=== PATIENT | female | born 1965 | race Caucasian/White ===

== ENCOUNTER → 2016-10-20 | Outpatient (CLI) | payer BC | LOC: RAD 08:06 | DX: M79.671 Pain in right foot (principal); M77.31 Calcaneal spur, right foot; M77.32 Calcaneal spur, left foot | CPT/HCPCS: 73630 ==

== ENCOUNTER → 2020-09-13 | Outpatient (CLI) | payer OTHER, SELFPAY ==
[~2020-09-13] MED LIST: CRESTOR40 MG PO; GLUCOPHAGE500 MG PO; IMDUR ER TAB 3030 MG PO; LOPRESSOR 25 MG25 MG PO; PROZAC40 MG PO; ZESTRIL40 MG PO
== END ==
LOC: MAMO 13:00
DX: N63.0 Unspecified lump in unspecified breast (principal)
CPT/HCPCS: 77066; G0279

== ENCOUNTER → 2021-04-17 | Outpatient (CLI) | payer OTHER | LOC: KOH-I 15:07 | DX: J01.81 Other acute recurrent sinusitis (principal); R93.89 Abnormal findings on diagnostic imaging of other specified body structures | CPT/HCPCS: 70486 ==

== ENCOUNTER → 2021-11-07 | Outpatient (CLI) | payer OTHER | LOC: RAD 11:42 | DX: M54.50 Low back pain, unspecified (principal); M47.816 Spondylosis without myelopathy or radiculopathy, lumbar region | CPT/HCPCS: 72100 ==

== ENCOUNTER → 2021-11-27 | Outpatient (CLI) | payer OTHER | LOC: KOH-I 13:45 | DX: M54.50 Low back pain, unspecified (principal); M51.36 Other intervertebral disc degeneration, lumbar region; M48.061 Spinal stenosis, lumbar region without neurogenic claudication | CPT/HCPCS: 72148 ==